=== PATIENT | male | born 1965 | race Caucasian/White ===

== ENCOUNTER 2022-05-22 15:59 | Emergency (ER) | payer OTHER ==
[~2022-05-22] VITALS: Ht 190.5 cm; Wt 122.7 kg
[2022-05-22 16:12] VITALS: BP 157/94
[2022-05-22] MEDS ORDERED: METFORMIN HCL500 M1 PO (16:17)
[2022-05-22] MEDS ORDERED: GLIPIZIDE10 M2 PO (16:17)
[2022-05-22] MEDS ORDERED: FLEXERIL5 M1 PO (16:33)
[2022-05-22] MEDS ORDERED: MOTRIN800 MG PO (16:33)
[2022-05-22 16:37] VITALS: BP 157/94
[2022-05-23] MEDS ORDERED: JARDIANCE25 MG PO (17:33)
[2022-05-23] MEDS ORDERED: ULTRAM50 M1 PO ×2 (20:08→20:34)
== END 2022-05-22 17:02 | disposition home or self-care (01) | DRG 605 ==
LOC: ED 15:59
DX: S60.511A Abrasion of right hand, initial encounter (principal); S60.221A Contusion of right hand, initial encounter; R51.9 Headache, unspecified; S16.1XXA Strain of muscle, fascia and tendon at neck level, initial encounter; V43.52XA Car driver injured in collision with other type car in traffic accident, initial encounter

== ENCOUNTER 2022-05-23 16:57 | Emergency (ER) | payer OTHER ==
[~2022-05-23] VITALS: Ht 190.5 cm; Wt 124.0 kg
[2022-05-23] VITALS (8 sets, daily range): BP systolic 116–149; BP diastolic 70–87
[~2022-05-23 16:57] MED LIST: FLEXERIL5 M1 PO; GLIPIZIDE10 M2 PO; METFORMIN HCL500 M1 PO; MOTRIN800 MG PO
[2022-05-23] MEDS ORDERED: JARDIANCE25 MG PO (17:33)
[2022-05-23 17:55] LABS: ALBUMIN 4.8 g/dL (3.2-5.0); ALKALINE PHOSPHATASE 56 u/l (38-126); ANION GAP 16 (6-22 (CALC)); BILIRUBIN, TOTAL 0.5 mg/dL (0.0-1.4); BUN 18 mg/dL (9-20); BUN/CREATININE RATIO 20 (12-20 (CALC)); CARBON DIOXIDE 26 mmol/l (22-30); CHLORIDE 101 mmol/l (95-108); CREATININE 0.9 mg/dL (0.7-1.3); GFR FOR AFR.AMER. > 60 ML/MIN (>=60 (CALC)); GFR OTHER RACES > 60 ML/MIN (>=60 (CALC)); HEMATOCRIT 48.7 % (39.0-50.0); HEMOGLOBIN 16.1 g/dl (14.0-18.0); IMMATURE GRANULOCYTES 0.1 % (0.0-5.0); LIPASE 119 u/l (23-300); MEAN CELL VOLUME 90.4 fL CALC (80.0-100.0); MEAN CORPUSCULAR HGB 29.9 pG CALC (26.0-32.0); MEAN CORPUSCULAR HGB CONC 33.1 g/dL CAL (32.0-36.0); NEUT# 6.46 thou/uL (1.82-7.42); POTASSIUM 4.3 mmol/l (3.5-5.1); RED BLOOD COUNT 5.39 mill/uL (4.70-6.10); RED CELL DISTRI WIDTH 12.6 % (11.5-15.5); SGOT/AST 29 u/l (17-59); SODIUM 138 mmol/l (137-146); TOTAL PROTEIN 7.5 g/dL (6.3-8.2)
[2022-05-23] MEDS ORDERED: ULTRAM50 M1 PO ×2 (20:08→20:34)
== END 2022-05-23 20:38 | disposition home or self-care (01) | DRG 605 ==
LOC: ED 16:57
PROVIDERS: Emergency Medicine
DX: S30.1XXA Contusion of abdominal wall, initial encounter (principal); V43.52XA Car driver injured in collision with other type car in traffic accident, initial encounter; R51.9 Headache, unspecified
CPT/HCPCS: Q9967